=== PATIENT | female | born 1945 | race Caucasian/White ===

== ENCOUNTER 2021-03-03 09:21 | Outpatient (CLI) | payer MEDICARE, MEDICAID | END 2021-03-03 23:59 | disposition home or self-care (01) | LOC: VAS 09:21 | PROVIDERS: ATTEND Radiology Diagnostic Radiology | DX: I70.90 Unspecified atherosclerosis (principal); I83.813 Varicose veins of bilateral lower extremities with pain | CPT/HCPCS: 93922; 93925; 93970 ==